=== PATIENT | female | born 1995 ===

== ENCOUNTER 2019-04-17 11:16 | Emergency (ER) | payer OTHER ==
[~2019-04-17] VITALS: Ht 154.9 cm; Wt 49.9 kg
[~2019-04-17 11:16] MED LIST: MOTRIN800 MG PO
[2019-04-17] MEDS ORDERED: ONCE DAILY1 EACH (11:48)
== END 2019-04-17 13:20 | disposition home or self-care (01) ==
LOC: ER 11:16
DX: H00.024 Hordeolum internum left upper eyelid (principal)

== ENCOUNTER 2019-05-04 13:07 | Emergency (ER) | payer OTHER ==
[~2019-05-04] VITALS: Ht 154.9 cm; Wt 49.9 kg
[~2019-05-04 13:07] MED LIST changes: +ONCE DAILY1 EACH
== END 2019-05-04 16:19 | disposition home or self-care (01) ==
LOC: ER 13:07
DX: H66.92 Otitis media, unspecified, left ear (principal)

== ENCOUNTER 2019-05-31 20:18 | Emergency (ER) | payer OTHER ==
[~2019-05-31] VITALS: Ht 154.9 cm; Wt 49.9 kg
== END 2019-05-31 21:47 | disposition home or self-care (01) ==
LOC: ER 20:18
DX: S61.221A Laceration with foreign body of left index finger without damage to nail, initial encounter (principal); W29.0XXA Contact with powered kitchen appliance, initial encounter; Y93.G9 Activity, other involving cooking and grilling; Y92.018 Other place in single-family (private) house as the place of occurrence of the external cause; Y99.8 Other external cause status

== ENCOUNTER 2019-06-07 20:31 | Emergency (ER) | payer OTHER ==
[~2019-06-07] VITALS: Ht 154.9 cm; Wt 49.9 kg
== END 2019-06-07 22:59 | disposition home or self-care (01) ==
LOC: ER 20:31
DX: Z48.02 Encounter for removal of sutures (principal)